=== PATIENT | female | born 1940 | race Caucasian/White ===

== ENCOUNTER 2016-04-21 13:30 | Inpatient (IN) ==
[2016-04-21] MEDS ORDERED: Tdap (ADACEL) Vaccine 0.5 ML IM ONE (13:32)
--- NOTE | 2016-04-21 13:34 | Emergency Department Note ---
Disposition Clinical Impression: UTI (urinary tract infection), Fall, Altered mental status, Periorbital contusion of left eye Disposition: Admitted As Inpatient Condition: Good General Adult HPI - General Chief complaint: ED Head Injury Stated complaint: Fall Time Seen by Provider: 04/21/16 13:31 - Related Data Home Medications Medication Instructions Recorded Confirmed No Known Home Drugs 04/21/16 04/21/16 Allergies Allergy/AdvReac Type Severity Reaction Status Date / Time No Known Allergies Allergy Verified 04/21/16 15:11 Past Medical History - Past Medical History Medical history: Reports: hypertension Surgical history: Reports: , carotid endarterectomy, cholecystectomy, hysterectomy Psychiatric history: Reports: no psych history - Social History Smoking Status: Never smoker Alcohol use: Reports: none Drug use: Reports: none Course Vital Signs Temperature 98.1 F 04/21/16 13:33 Pulse Rate 77 04/21/16 13:33 Respiratory Rate 16 04/21/16 13:33 Blood Pressure 184/100 04/21/16 13:33 O2 Sat by Pulse Oximetry 99 04/21/16 13:33 Temperature 97.7 F 04/21/16 16:05 Pulse Rate 60 04/21/16 16:05 Respiratory Rate 15 04/21/16 16:05 Blood Pressure 173/87 04/21/16 16:05 O2 Sat by Pulse Oximetry 99 04/21/16 16:05 Oxygen Delivery Oxygen Delivery Room Air Medical Decision Making - Lab Data Result diagrams: 04/21/16 14:28 04/21/16 14:28 Lab Results 04/21/16 04/21/16 04/21/16 Range/Units 14:28 14:28 14:28 WBC 4.5 (4.3-11.1) K/mcL RBC 4.57 (3.82-4.97) M/mcL Hgb 13.2 (11.5-15.4) g/dL Hct 42.0 (35.3-44.9) % MCV 91.9 (83.0-100.0) fL MCH 28.9 (28.0-33.3) pg MCHC 31.4 L (31.6-35.5) g/dL RDW 14.2 (11.5-14.5) % Plt Count 156 (140-400) K/mcL MPV 10.9 (9.4-12.4) fL Immature Gran % 0.2 (0-4) % Seg Neutrophils % 59.7 % Lymphocytes % 27.7 % Monocytes % 9.5 % Eosinophils % 2.2 % Basophils % 0.7 % Neutrophils # 2.7 (1.6-8.9) K/mcL Lymphocytes # 1.3 (0.6-4.6) K/mcL Monocytes # 0.4 (0.0-1.3) K/mcL Eosinophils # 0.1 (0.0-0.6) K/mcL Basophils # 0.0 (0.0-0.2) K/mcL Sodium 138 (136-145) mEq/L Potassium 3.9 (3.5-4.5) mEq/L Chloride 106 (98-109) mEq/L Carbon Dioxide 25 (19-29) mEq/L BUN 13 (7-20) mg/dL Creatinine 0.84 (0.57-1.11) mg/dL Est GFR ( Amer) > 60 (> 60) Est GFR (Non-Af Amer) > 60 (> 60) BUN/Creatinine Ratio 15 (6-26) Glucose 130 H (70-99) mg/dL Calculated Osmolality 288 (280-300) Calcium 8.7 (8.6-10.8) mg/dL Total Bilirubin 1.0 (0.2-1.2) mg/dL AST 36 H (5-34) Units/L ALT 27 (0-55) Units/L Alkaline Phosphatase 119 (38-126) Units/L Troponin I 0.01 (0-0.03) ng/mL Serum Total Protein 7.0 (6.0-8.3) g/dL Albumin 3.1 L (3.5-5.0) g/dL Globulin 3.9 H (2.4-3.5) g/dL Albumin/Globulin Ratio 0.8 L (1.1-2.2) TSH (0.350-4.840) mcIU/mL Urine Color (Yellow) Urine Clarity (Clear) Urine pH (5.0-8.0) pH Units Ur Specific [place] (1.010-1.025) Urine Protein (Neg-Trace) mg/dL Urine Glucose (UA) (Normal) mg/dL Urine Ketones (Negative) mg/dL Urine Blood (Negative) Urine Nitrite (Negative) Urine Bilirubin (Negative) Urine Urobilinogen (Normal) mg/dL Ur Leukocyte Esterase (Negative) Urine Microscopic RBC (0-3) per hpf Urine Microscopic WBC (0-3) per hpf Ur Squamous Epith Cells (None-Few) per lpf Urine Bacteria (None-Few) per hpf Hyaline Casts (None-Few) per lpf Urine Opiates Screen (Ttsuoc=869) ng/mL Ur Barbiturates Screen (Pdlvft=079) ng/mL Ur Phencyclidine Scrn (Cutoff=25) ng/mL Ur Amphetamines Screen (Ntlptu=3252) ng/mL U Benzodiazepines Scrn (Bhizxz=617) ng/mL Urine Cocaine Screen (Cutoff= 300) ng/mL U Marijuana (THC) Screen (Cutoff = 50) ng/mL 04/21/16 04/21/16 04/21/16 Range/Units 14:28 14:40 14:40 WBC (4.3-11.1) K/mcL RBC (3.82-4.97) M/mcL Hgb (11.5-15.4) g/dL Hct (35.3-44.9) % MCV (83.0-100.0) fL MCH (28.0-33.3) pg MCHC (31.6-35.5) g/dL RDW (11.5-14.5) % Plt Count (140-400) K/mcL MPV (9.4-12.4) fL Immature Gran % (0-4) % Seg Neutrophils % % Lymphocytes % % Monocytes % % Eosinophils % % Basophils % % Neutrophils # (1.6-8.9) K/mcL Lymphocytes # (0.6-4.6) K/mcL Monocytes # (0.0-1.3) K/mcL Eosinophils # (0.0-0.6) K/mcL Basophils # (0.0-0.2) K/mcL Sodium (136-145) mEq/L Potassium (3.5-4.5) mEq/L Chloride (98-109) mEq/L Carbon Dioxide (19-29) mEq/L BUN (7-20) mg/dL Creatinine (0.57-1.11) mg/dL Est GFR ( Amer) (> 60) Est GFR (Non-Af Amer) (> 60) BUN/Creatinine Ratio (6-26) Glucose (70-99) mg/dL Calculated Osmolality (280-300) Calcium (8.6-10.8) mg/dL Total Bilirubin (0.2-1.2) mg/dL AST (5-34) Units/L ALT (0-55) Units/L Alkaline Phosphatase (38-126) Units/L Troponin I (0-0.03) ng/mL Serum Total Protein (6.0-8.3) g/dL Albumin (3.5-5.0) g/dL Globulin (2.4-3.5) g/dL Albumin/Globulin Ratio (1.1-2.2) TSH 0.785 (0.350-4.840) mcIU/mL Urine Color Yellow (Yellow) Urine Clarity Cloudy A (Clear) Urine pH 5.5 (5.0-8.0) pH Units Ur Specific [place] 1.021 (1.010-1.025) Urine Protein Negative (Neg-Trace) mg/dL Urine Glucose (UA) Normal (Normal) mg/dL Urine Ketones Negative (Negative) mg/dL Urine Blood Negative (Negative) Urine Nitrite Positive A (Negative) Urine Bilirubin Negative (Negative) Urine Urobilinogen Normal (Normal) mg/dL Ur Leukocyte Esterase Moderate H (Negative) Urine Microscopic RBC 5-15 H (0-3) per hpf Urine Microscopic WBC 5-15 H (0-3) per hpf Ur Squamous Epith Cells Many H (None-Few) per lpf Urine Bacteria Many H (None-Few) per hpf Hyaline Casts None Seen (None-Few) per lpf Urine Opiates Screen Negative (Curuus=374) ng/mL Ur Barbiturates Screen Negative (Nwqiqv=028) ng/mL Ur Phencyclidine Scrn Negative (Cutoff=25) ng/mL Ur Amphetamines Screen Negative (Xgthxf=2141) ng/mL U Benzodiazepines Scrn Negative (Mllccn=494) ng/mL Urine Cocaine Screen Negative (Cutoff= 300) ng/mL U Marijuana (THC) Screen Negative (Cutoff = 50) ng/mL Attestation Statement - Attestation Attestation: I examined this patient and my medical decision-making was reviewed with the PROFESSOR OF KINESIOLOGY/PA/Advanced Practice Nurse/Resident Physician. I agree with the documented findings, disposition and treatment plan as described except to the extent set forth below. Zxls-zf-hcod time provided Patient presents via EMS. It is reported that she has experienced intermittent confusion over the past several days. She recently fell striking the left side of her face but the patient is amnestic to the events. She presents alert and lucid but has evidence of left-sided facial injury including abrasion and contusion. She takes no blood thinners
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
[2016-04-21 14:35] LABS: Basophils % 0.7 %; Eosinophils # 0.1 K/mcL (0.0-0.6); Eosinophils % 2.2 %; Hemoglobin 13.2 g/dL (11.5-15.4); Immature Granulocytes % 0.2 % (0-4); Lymphocytes # 1.3 K/mcL (0.6-4.6); Lymphocytes % 27.7 %; Mean Corpuscular HGB Conc 31.4 g/dL (31.6-35.5); Mean Corpuscular Hemoglobin 28.9 pg (28.0-33.3); Mean Corpuscular Volume 91.9 fL (83.0-100.0); Mean Platelet Volume 10.9 fL (9.4-12.4); Monocytes # 0.4 K/mcL (0.0-1.3); Monocytes % 9.5 %; Neutrophils # 2.7 K/mcL (1.6-8.9); Platelet Count 156 K/mcL (140-400); Red Blood Count 4.57 M/mcL (3.82-4.97); Red Cell Distribution Width 14.2 % (11.5-14.5); Segmented Neutrophils % 59.7 %
[2016-04-21 14:54] LABS: Bilirubin,Urine Negative (Negative); Blood,Urine Negative (Negative); Clarity,Urine Cloudy (Clear); Color,Urine Yellow (Yellow); Glucose,Urine (UA) Normal (Normal); Ketones,Urine Negative (Negative); Leukocyte Esterase,Urine Moderate (Negative); Nitrite,Urine Positive (Negative); PH,Urine 5.5 pH Units (5.0-8.0); Protein,Urine Negative (Neg-Trace); Specific Gravity,Urine 1.021 (1.010-1.025); Urobilinogen,Urine Normal (Normal)
[2016-04-21 14:54] LABS: Alanine Aminotransferase 27 Units/L (0-55); Albumin 3.1 g/dL (3.5-5.0); Albumin/Globulin Ratio 0.8 (1.1-2.2); Alkaline Phosphatase 119 Units/L (38-126); Aspartate Amino Transferase 36 Units/L (5-34); BUN/Creatinine Ratio 15 (6-26); Blood Urea Nitrogen 13 mg/dL (7-20); Calcium 8.7 mg/dL (8.6-10.8); Carbon Dioxide 25 mEq/L (19-29); Chloride 106 mEq/L (98-109); Globulin 3.9 g/dL (2.4-3.5); Glucose 130 mg/dL (70-99); Osmolality,Calculated 288 (280-300); Potassium 3.9 mEq/L (3.5-4.5); Sodium 138 mEq/L (136-145); eGFR For African Americans > 60 (> 60); eGFR For Non-African Americans > 60 (> 60)
[2016-04-21 14:56] LABS: Bacteria,Urine Many per hpf (None-Few); Hyaline Casts,Urine None Seen per lpf (None-Few); Squamous Epithelial Cell,Urine Many per lpf (None-Few)
[2016-04-21 14:59] LABS: Amphetamine Screen,Urine Negative ng/mL (Cutoff=1000); Barbiturate Screen,Urine Negative ng/mL (Cutoff=200); Benzodiazepines Screen,Urine Negative ng/mL (Cutoff=200); Cannabinoid Screen,Urine Negative ng/mL (Cutoff = 50); Cocaine Screen,Urine Negative ng/mL (Cutoff= 300); Opiate Screen,Urine Negative ng/mL (Cutoff=300); Phencyclidine Screen,Urine Negative ng/mL (Cutoff=25)
[2016-04-21] MEDS ORDERED: Acetaminophen 325 MG TABLET PO PRN (16:41)
[2016-04-21] MEDS ORDERED: Naloxone 0.4 MG/ML INJ IVP PRN (16:41)
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
[2016-04-21] MEDS: 0.9 % Sodium Chloride 1,000 ML IVC SCH (18:12)
[2016-04-21] MEDS: *HR* Heparin 5,000 UNIT/ML VIAL SQ SCH (18:12)
[2016-04-22 05:45] LABS: Basophils % 0.5 %; Eosinophils # 0.2 K/mcL (0.0-0.6); Eosinophils % 5.1 %; Hematocrit 37.4 % (35.3-44.9); Hemoglobin 12.1 g/dL (11.5-15.4); Immature Granulocytes % 0.3 % (0-4); Lymphocytes # 0.9 K/mcL (0.6-4.6); Lymphocytes % 23.5 %; Mean Corpuscular HGB Conc 32.4 g/dL (31.6-35.5); Mean Corpuscular Hemoglobin 29.4 pg (28.0-33.3); Mean Corpuscular Volume 90.8 fL (83.0-100.0); Mean Platelet Volume 12.4 fL (9.4-12.4); Monocytes # 0.4 K/mcL (0.0-1.3); Monocytes % 10.2 %; Neutrophils # 2.4 K/mcL (1.6-8.9); Platelet Count 131 K/mcL (140-400); Red Blood Count 4.12 M/mcL (3.82-4.97); Red Cell Distribution Width 14.2 % (11.5-14.5); Segmented Neutrophils % 60.4 %
[2016-04-22 05:59] LABS: Alanine Aminotransferase 23 Units/L (0-55); Albumin 2.8 g/dL (3.5-5.0); Albumin/Globulin Ratio 0.8 (1.1-2.2); Alkaline Phosphatase 106 Units/L (38-126); Aspartate Amino Transferase 32 Units/L (5-34); BUN/Creatinine Ratio 17 (6-26); Bilirubin,Total 0.9 mg/dL (0.2-1.2); Blood Urea Nitrogen 13 mg/dL (7-20); Calcium 8.5 mg/dL (8.6-10.8); Carbon Dioxide 22 mEq/L (19-29); Chloride 108 mEq/L (98-109); Chol/HDL Ratio 4.1 (0-4.9); Cholesterol 142 mg/dL (< 200); Globulin 3.4 g/dL (2.4-3.5); Glucose 148 mg/dL (70-99); HDL Cholesterol 35 mg/dL (40-59); LDL Cholesterol,Calculated 83 mg/dL (0-99); Magnesium 1.8 mg/dL (1.6-2.6); Osmolality,Calculated 289 (280-300); Phosphorous 3.2 mg/dL (2.3-4.7); Sodium 138 mEq/L (136-145); Total Protein 6.2 g/dL (6.0-8.3); Triglycerides 119 mg/dL (< 150); eGFR For African Americans > 60 (> 60); eGFR For Non-African Americans > 60 (> 60)
[2016-04-22] MEDS: *HR* Heparin 5,000 UNIT/ML VIAL SQ SCH ×2 (06:26→15:32)
[2016-04-22] MEDS: 0.9 % Sodium Chloride 1,000 ML IVC SCH (08:56)
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
[2016-04-22] MEDS ORDERED: *HR* LORazepam 2 MG/ML VIAL IVP ONE (15:27)
[2016-04-23 05:30] LABS: Basophils % 0.3 %; Eosinophils # 0.2 K/mcL (0.0-0.6); Hematocrit 37.7 % (35.3-44.9); Hemoglobin 12.2 g/dL (11.5-15.4); Immature Granulocytes % 0.3 % (0-4); Lymphocytes # 0.8 K/mcL (0.6-4.6); Lymphocytes % 20.6 %; Mean Corpuscular HGB Conc 32.4 g/dL (31.6-35.5); Mean Corpuscular Hemoglobin 29.5 pg (28.0-33.3); Mean Corpuscular Volume 91.3 fL (83.0-100.0); Mean Platelet Volume 12.1 fL (9.4-12.4); Monocytes # 0.4 K/mcL (0.0-1.3); Monocytes % 11.2 %; Neutrophils # 2.4 K/mcL (1.6-8.9); Nucleated Red Blood Cells 0.5 /100 WBC (0); Platelet Count 126 K/mcL (140-400); Red Blood Count 4.13 M/mcL (3.82-4.97); Red Cell Distribution Width 14.1 % (11.5-14.5); Segmented Neutrophils % 61.6 %
[2016-04-23 05:46] LABS: BUN/Creatinine Ratio 18 (6-26); Blood Urea Nitrogen 14 mg/dL (7-20); Calcium 8.7 mg/dL (8.6-10.8); Carbon Dioxide 26 mEq/L (19-29); Chloride 108 mEq/L (98-109); Glucose 99 mg/dL (70-99); Osmolality,Calculated 289 (280-300); Sodium 139 mEq/L (136-145); eGFR For African Americans > 60 (> 60); eGFR For Non-African Americans > 60 (> 60)
[2016-04-23] MEDS: *HR* Heparin 5,000 UNIT/ML VIAL SQ SCH ×2 (05:58→17:05)
--- NOTE | 2016-04-23 07:15 | Electrocardiograph Report ---
[address] [place], [place] [address] Test Date: 2016-04-21 Pat Name: Betty Leigh Department: 105 Room: 3B45 Gender: F Director Of Security: : 1940 Requested By: Desmond Riley Order Number: [id number] Reading MD: Rudolph Smith MD Measurements Intervals Prentice Rate: 73 P: 29 MS: 139 QRS: -23 QRSD: 94 T: 30 QT: 369 QTc: 396 Interpretive Statements SINUS RHYTHM WITH OCCASIONAL ECTOPIC PREMATURE COMPLEXES BORDERLINE LEFT AXIS DEVIATION MODERATE VOLTAGE CRITERIA FOR LVH Electronically Signed On 04-23-2016 7:13:45 EST by Rudolph Smith MD
[2016-04-23 09:45] LABS: Clarity,Urine Clear (Clear); Color,Urine Orange (Yellow)
[2016-04-23 09:47] LABS: Squamous Epithelial Cell,Urine Few per lpf (None-Few)
[2016-04-23 09:49] LABS: RBC,Urine 0-3 per hpf (0-3); WBC,Urine 0-3 per hpf (0-3)
[2016-04-23 09:50] LABS: Amorphous Sediment,Urine Few (Few)
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
[2016-04-23] MEDS: 0.9 % Sodium Chloride 1,000 ML IVC SCH (17:06)
[2016-04-23] MEDS: *HR* LORazepam 2 MG/ML VIAL IVP ONE ×2 (17:24→18:31)
[2016-04-23] MEDS: *HR* LORazepam 0.5 MG TABLET PO ONE ×2 (17:43→18:16)
[2016-04-23] MEDS ORDERED: Haloperidol Lactate 5 MG/ML VIAL IVP ONE (20:15)
[2016-04-24 06:38] LABS: Hematocrit 37.5 % (35.3-44.9); Hemoglobin 11.9 g/dL (11.5-15.4); Mean Corpuscular HGB Conc 31.7 g/dL (31.6-35.5); Mean Corpuscular Hemoglobin 28.9 pg (28.0-33.3); Platelet Count 127 K/mcL (140-400); Red Blood Count 4.12 M/mcL (3.82-4.97)
[2016-04-24] MEDS: *HR* Heparin 5,000 UNIT/ML VIAL SQ SCH ×2 (06:38→17:02)
[2016-04-24 06:55] LABS: BUN/Creatinine Ratio 23 (6-26); Blood Urea Nitrogen 16 mg/dL (7-20); Calcium 8.4 mg/dL (8.6-10.8); Carbon Dioxide 22 mEq/L (19-29); Chloride 110 mEq/L (98-109); Glucose 88 mg/dL (70-99); Osmolality,Calculated 291 (280-300); Sodium 140 mEq/L (136-145); eGFR For African Americans > 60 (> 60); eGFR For Non-African Americans > 60 (> 60)
[2016-04-24 07:12] LABS: Potassium 4.3 mEq/L (3.5-4.5)
--- NOTE | 2016-04-24 10:25 | Internal Med Progress Note ---
<Leticia Keller - Last Filed: 04/24/16 15:10> Date of Encounter: 04/24/16 Time of Encounter: 10:16 - Assessment and plan (1) Altered mental status Current Visit: Yes Status: Acute Assessment and plan: Patient being worked up for altered mental status. Patient is intermittently confused, pulling out her IV lines, and does not remember conversations that occurred earlier in the day. Furthermore, she does not have a linear thought process and displays tangential thinking. CT head showed no acute abnormality. Etiology unclear at this time, but likely exacerbated by patient's UTI (day4 of Ceftriaxone). Patient lives alone and baseline is uknown. According to [facility] notes, she was seen by her PCP back in December and had diagnosis of Dementia listed. Patient lives alone at home. There is significant concern regarding her safety. She states she has family members that live close by but this has not been confirmed. Plan: Consult to psychiatry Risperidol daily Ativan Q8 PRN for agitation RPR pending with tomorrow's labs. Will attempt to get in contact with family regarding her baseline mental status. Consult to social media coordinator to help with discharge planning. Qualifiers: Altered mental status type: unspecified Qualified Code(s): R41.82 - Altered mental status, unspecified (2) Dementia Current Visit: No Status: Acute Assessment and plan: Plan as above. Qualifiers: Dementia type: Alzheimer's disease Alzheimer's disease onset: other onset Dementia behavioral disturbance: with behavioral disturbance Qualified Code( s): G30.8 - Other Alzheimer's disease; F02.81 - Dementia in other diseases classified elsewhere with behavioral disturbance (3) UTI (urinary tract infection) Current Visit: Yes Status: Acute Assessment and plan: Continue with Ceftriaxone. Qualifiers: Urinary tract infection type: site unspecified Hematuria presence: without hematuria Qualified Code(s): N39.0 - Urinary tract infection, site not specified (4) Periorbital contusion of left eye Current Visit: Yes Status: Acute Assessment and plan: Improved from yesterday. Pt denies change in vision or headache. Will continue to monitor. Qualifiers: Encounter type: initial encounter Qualified Code(s): S05.12XA - Contusion of eyeball and orbital tissues, left eye, initial encounter (5) Essential hypertension Current Visit: No Status: Chronic Assessment and plan: continue to monitor. (6) DVT prophylaxis Current Visit: Yes Status: Acute Assessment and plan: Heparin SQ - Subjective Interval history: 75 year-old white female examined at bedside. Patient reports she is doing fine except she still has mild suprapubic pain. She reports her dysuria has resolved. She denies chills, cp, sob, cough, nausea, vomiting, diarrhea, or any other pain at this time. Of note patient may not be completely aware of her situation. She does not always answer questions appropriately. She is aware that she is in the hospital being treated for a UTI. She frequently redirects the conversation to explaining that her gas company has turned off the gas in her house so she has no heat at home. When asked about dysuria patient responded "No, but when I boil the urine in the bedside commode I have no heat in my house". Per nursing staff patient appears to be fluctuating between coherent answers and agitation/confusion. - Constitutional Vitals: Temp Pulse Resp BP Pulse Ox 98.0 F 50 16 170/81 96 04/24/16 07:29 04/24/16 07:29 04/24/16 07:29 04/24/16 07:29 04/24/16 07:29 General appearance: Present: cooperative, A&O X 1, pleasant, no acute distress. Absent: answers questions appropriately Exam: Patient is alert, calm, and cooperative on exam this morning. In NAD. Oriented to self. She knows she is in the hospital but cannot name the hospital. She reports we are in 2002. She repeatedly reports the month as Saturday. - Head Head exam: Present: atraumatic Additional comments: Patient has abrasion/contusion over left eye. Not tender to palpation. Some echymosis below the left eye. - Eye Eye exam: Present: PERRL, conjuntiva pink, sclera anicteric - ENT ENT exam: Present: mucous membranes moist - Neck Neck exam general surgery: Present: supple, trachea midline. Absent: lymphadenopathy - Respiratory Respiratory exam: Present: CTAB. Absent: accessory muscle use, rales, respiratory distress, rhonchi, wheezes - Cardiovascular Cardiovascular exam: Present: bradycardia, +S1, +S2. Absent: diastolic murmur, gallop, irregular rhythm, rubs, systolic murmur - GI/Abdominal GI/Abdominal exam: Present: normal bowel sounds, soft, tenderness (mild tenderness suprapubic region), no peritoneal signs. Absent: distended, guarding - Extremities Exam Extremities exam: Present: warm, radial pulses palpable and symetrical. Absent : calf tenderness, cyanotic, pedal edema Additional comments: 2/4 bilateral pedal pulses - Back Exam Back exam: Absent: CVA tenderness (L), CVA tenderness (R) - Neurological Exam Neurological exam: Present: alert, altered (Oriented x1 see above/HPI), no focal deficits, strengths equal and symetr throughout. Absent: facial droop, speech deficit - Psychiatric Psychiatric exam: Present: normal affect, normal mood - Skin Skin exam: Present: dry, intact Internal Medicine: Result - Labs CBC & Chem 7: 04/24/16 05:28 04/24/16 05:28 Labs: Short CBC 04/24/16 Range/Units 05:28 WBC 3.7 L (4.3-11.1) K/mcL Hgb 11.9 (11.5-15.4) g/dL Hct 37.5 (35.3-44.9) % Plt Count 127 L (140-400) K/mcL BMP 04/24/16 05:28 Sodium 140 Potassium 4.3 Chloride 110 H Carbon Dioxide 22 BUN 16 Creatinine 0.70 Glucose 88 Calcium 8.4 L Consult Discharge Plan - Plan Referrals: Barrett Webb MD [Primary Care Provider] - <Jorge Alberto Jeter - Last Filed: 04/24/16 18:06> Date of Encounter: 04/24/16 - Constitutional Vitals: Temp Pulse Resp BP Pulse Ox 97.9 F 56 16 188/92 95 04/24/16 10:51 04/24/16 10:51 04/24/16 10:51 04/24/16 10:51 04/24/16 10:51 Internal Medicine: Result - Labs CBC & Chem 7: 04/24/16 05:28 04/24/16 05:28 Labs: Short CBC 04/24/16 Range/Units 05:28 WBC 3.7 L (4.3-11.1) K/mcL Hgb 11.9 (11.5-15.4) g/dL Hct 37.5 (35.3-44.9) % Plt Count 127 L (140-400) K/mcL BMP 04/24/16 05:28 Sodium 140 Potassium 4.3 Chloride 110 H Carbon Dioxide 22 BUN 16 Creatinine 0.70 Glucose 88 Calcium 8.4 L - Attending Attestation I examined this patient and my medical decision-making was reviewed with the BLIND HANGER/PA/Advanced Practice Nurse/Resident Physician. I agree with the documented findings, disposition and treatment plan as described except to the extent set forth below. Patient seen at bedside with medical students, residents and RN 75-year-old with hypertension controlled without medications Admitted for altered mental status and UTI Patient was very restless for most of the day, pulling out IV lines and threatening to be discharged home. Patient seen and mentally she seems to be confused, she is oriented to time place and person, however past changes every time she has potential spine and she has a mentation. It is possible that the patient has delirium hyperactivity secondary to hospitalization however she did have altered mental status at the time of presentation, she was at the bank multiple stories. She has been managed with 4 days of antibiotics IV. Blood and Urine cultures negative, Continue same. Psychiatric evaluation for decisional capacity, and for any recommendations. Start risperidone and continue orientation and re-orientation. Continued attempts to reach patient's family.
[2016-04-24] MEDS ORDERED: *HR* LORazepam 2 MG/ML VIAL IVP STA (14:05)
[2016-04-24] MEDS: risperiDONE 0.25 MG TABLET PO SCH (14:56)
[2016-04-25 07:06] LABS: BUN/Creatinine Ratio 30 (6-26); Blood Urea Nitrogen 21 mg/dL (7-20); Calcium 8.4 mg/dL (8.6-10.8); Carbon Dioxide 24 mEq/L (19-29); Chloride 109 mEq/L (98-109); Glucose 104 mg/dL (70-99); Osmolality,Calculated 295 (280-300); Sodium 141 mEq/L (136-145); eGFR For African Americans > 60 (> 60); eGFR For Non-African Americans > 60 (> 60)
[2016-04-25 07:20] LABS: Basophils % 0.5 %; Eosinophils # 0.3 K/mcL (0.0-0.6); Eosinophils % 7.1 %; Hemoglobin 12.6 g/dL (11.5-15.4); Immature Granulocytes % 0.2 % (0-4); Lymphocytes % 23.8 %; Mean Corpuscular HGB Conc 32.3 g/dL (31.6-35.5); Mean Corpuscular Hemoglobin 29.4 pg (28.0-33.3); Mean Corpuscular Volume 90.9 fL (83.0-100.0); Mean Platelet Volume 11.8 fL (9.4-12.4); Monocytes # 0.4 K/mcL (0.0-1.3); Neutrophils # 2.4 K/mcL (1.6-8.9); Platelet Count 128 K/mcL (140-400); Red Blood Count 4.29 M/mcL (3.82-4.97); Red Cell Distribution Width 14.1 % (11.5-14.5); Segmented Neutrophils % 59.4 %
[2016-04-25] MEDS: *HR* Heparin 5,000 UNIT/ML VIAL SQ SCH ×2 (07:39→18:18)
--- NOTE | 2016-04-25 09:05 | Internal Med Progress Note ---
<Leticia Keller - Last Filed: 04/25/16 16:39> Date of Encounter: 04/25/16 Time of Encounter: 09:02 - Assessment and plan (1) Altered mental status Current Visit: Yes Status: Acute Assessment and plan: Patient being worked up for altered mental status. Patient is intermittently confused, pulling out her IV lines, and does not remember conversations that occurred earlier in the day. Furthermore, she does not have a linear thought process and displays tangential thinking. CT head showed no acute abnormality. Etiology unclear at this time, but likely exacerbated by patient's UTI Patient lives alone and baseline is uknown. According to [facility] notes, she was seen by her PCP back in December and had diagnosis of Dementia listed. Patient lives alone at home. There is significant concern regarding her safety. She states she has family members that live close by but this has not been confirmed. UDS negative, TSH normal. 04/25: patient is more confused today, but less agitated. she cannot remember the names of some of her family members. Plan: Consult to psychiatry- Spoke with Dr. Barnett he stated he would see the patient today. Risperidol daily Ceftriaxone Day 5 Ativan Q8 PRN for agitation RPR pending Will attempt to get in contact with family regarding her baseline mental status. Consult to social group worker to help with discharge planning. Qualifiers: Altered mental status type: unspecified Qualified Code(s): R41.82 - Altered mental status, unspecified (2) Dementia Current Visit: No Status: Acute Assessment and plan: Plan as above. Qualifiers: Dementia type: Alzheimer's disease Alzheimer's disease onset: other onset Dementia behavioral disturbance: with behavioral disturbance Qualified Code( s): G30.8 - Other Alzheimer's disease; F02.81 - Dementia in other diseases classified elsewhere with behavioral disturbance (3) UTI (urinary tract infection) Current Visit: Yes Status: Acute Assessment and plan: Continue with Ceftriaxone. Qualifiers: Urinary tract infection type: site unspecified Hematuria presence: without hematuria Qualified Code(s): N39.0 - Urinary tract infection, site not specified (4) Periorbital contusion of left eye Current Visit: Yes Status: Acute Assessment and plan: Improved from yesterday. Pt denies change in vision or headache. Will continue to monitor. Qualifiers: Encounter type: initial encounter Qualified Code(s): S05.12XA - Contusion of eyeball and orbital tissues, left eye, initial encounter (5) Essential hypertension Current Visit: No Status: Chronic Assessment and plan: BP has been mildly elevated. Continue Amlodipine Started daily. continue to monitor. (6) DVT prophylaxis Current Visit: Yes Status: Acute Assessment and plan: Heparin SQ - Subjective Interval history: 75 year-old female evaluated at bedside. Per nusing staff, she was confused overnight, and did not require any ativan. Today, she is alert and oriented x2 ( patient was looking at the board and saying what day it was). Patient is more confused today than she was yesterday, asking who her doctor is, and having trouble remembering the names of some of her family members. - Constitutional Vitals: Temp Pulse Resp BP Pulse Ox 98.2 F 70 16 174/92 93 L 04/25/16 08:46 04/25/16 08:46 04/25/16 08:46 04/25/16 08:46 04/25/16 08:46 General appearance: Present: cooperative, A&O X 2, pleasant, no acute distress. Absent: answers questions appropriately Exam: patient appears more confused today than she was yesterday. - Head Head exam: Present: atraumatic, normocephalic - ENT ENT exam: Present: mucous membranes moist - Neck Neck exam general surgery: Present: supple, trachea midline - Respiratory Respiratory exam: Present: CTAB. Absent: rhonchi, wheezes - Cardiovascular Cardiovascular exam: Present: RRR, +S1, +S2 - GI/Abdominal GI/Abdominal exam: Present: normal bowel sounds, soft. Absent: tenderness - Extremities Exam Extremities exam: Absent: cyanotic, pedal edema - Neurological Exam Neurological exam: Present: alert, altered Additional comments: patient is confused. - Skin Skin exam: Absent: cyanosis, petechiae Internal Medicine: Result - Labs CBC & Chem 7: 04/25/16 06:34 04/25/16 06:34 Labs: Short CBC 04/25/16 Range/Units 06:34 WBC 4.1 L (4.3-11.1) K/mcL Hgb 12.6 (11.5-15.4) g/dL Hct 39.0 (35.3-44.9) % Plt Count 128 L (140-400) K/mcL Neutrophils # 2.4 (1.6-8.9) K/mcL [facility] 04/25/16 06:34 Sodium 141 Potassium 4.0 Chloride 109 Carbon Dioxide 24 BUN 21 H Creatinine 0.69 Glucose 104 H Calcium 8.4 L Consult Discharge Plan - Plan Referrals: Barrett Webb MD [Primary Care Provider] - <Jorge Alberto Jeter T - Last Filed: 04/25/16 16:56> - Constitutional Vitals: Temp Pulse Resp BP Pulse Ox 98.2 F 70 16 174/92 93 L 04/25/16 08:46 04/25/16 08:46 04/25/16 08:46 04/25/16 08:46 04/25/16 08:46 Internal Medicine: Result - Labs CBC & Chem 7: 04/25/16 06:34 04/25/16 06:34 Labs: Short CBC 04/25/16 Range/Units 06:34 WBC 4.1 L (4.3-11.1) K/mcL Hgb 12.6 (11.5-15.4) g/dL Hct 39.0 (35.3-44.9) % Plt Count 128 L (140-400) K/mcL Neutrophils # 2.4 (1.6-8.9) K/mcL [facility] 04/25/16 06:34 Sodium 141 Potassium 4.0 Chloride 109 Carbon Dioxide 24 BUN 21 H Creatinine 0.69 Glucose 104 H Calcium 8.4 L - Attending Attestation I examined this patient and my medical decision-making was reviewed with the BILLING TYPIST/PA/Advanced Practice Nurse/Resident Physician. I agree with the documented findings, disposition and treatment plan as described except to the extent set forth below. 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
[2016-04-25] MEDS: amLODIPine 5 MG TABLET PO SCH (09:08)
[2016-04-25] MEDS: risperiDONE 0.25 MG TABLET PO SCH (09:08)
[2016-04-25] MEDS: *HR* LORazepam 2 MG/ML VIAL IVP PRN (12:46)
[2016-04-25] MEDS ORDERED: *HR* LORazepam 2 MG/ML VIAL IVP ONE (13:52)
--- NOTE | 2016-04-25 16:15 | Consult Note ---
Date of Encounter: 04/25/16 Time of Encounter: 15:00 Assessment & Recommendation (1) Delirium due to multiple etiologies Current visit: Yes Status: Acute Assessment & Recommendation: This could be delirium on top of dementia, however without records or information about her baseline level of functioning, it would be difficult to assess her capacity or competency. At this time I recommend continuation of medical treatment and when necessary Haldol orders were given to the nursing staff to help control her behaviors. I also recommend obtaining psychosocial assessment from the family. reconsult when patient condition is stabilized. Thank you (2) Altered mental status Current visit: Yes Status: Acute Qualifiers: Altered mental status type: unspecified Qualified Code(s): R41.82 - Altered mental status, unspecified History of Present Illness Patient: new to practice Requesting Physician: Jorge Alberto Jeter MD Reason for consult: agitation and confusion History of present illness: Ms. Leigh is a 75 year old female admitted to the hospital for treatment of UTI and she had a fall prior to admission. Psychiatric consultation was requested to evaluate her capacity to make decisions regarding placement in a nursing facility, however patient is in a state of delirium and cannot be evaluated in her condition. In her treatment is ongoing to address her medical issues. She is reported to be agitated and confused and disoriented and her speech is incoherent attempt to contact family has not been successful to determine her baseline level of functioning. CC: Jorge Alberto Jeter MD Past Med Surg Social Fam HX - Past Medical History Medical history: hypertension - Past Surgical History Surgical History: , carotid endarterectomy, cholecystectomy, hysterectomy - Social History Smoking Status: Never smoker Alcohol use: none Drug use: none - Family History Father Living Status: Hx Family Cardiac Disorders: No Hx Family Respiratory Disorders: No Hx Family Cancer: No Hx Family GI Disorders: No Hx Family Genitourinary Disorders: No Hx Family Endocrine Disorder: No Hx Family Musculoskeletal Disorders: No Hx Family Neuromuscular Disorders: No Hx Family Neurologic Disorders: No Hx Family HEENT Disorders: No Hx Family Autoimmune Disorders: No Hx Family Reproductive Disorders: No Hx Family Psychosocial Disorders: No Hx Family Medical Disorders: No Mother Living Status: Hx Family Cardiac Disorders: No Hx Family Respiratory Disorders: No Hx Family Cancer: No Hx Family GI Disorders: No Hx Family Genitourinary Disorders: No Hx Family Endocrine Disorder: No Hx Family Musculoskeletal Disorders: No Hx Family Neuromuscular Disorders: No Hx Family Neurologic Disorders: No Hx Family HEENT Disorders: No Hx Family Autoimmune Disorders: No Hx Family Reproductive Disorders: No Hx Family Psychosocial Disorders: No Hx Family Medical Disorders: No Medications & Allergies No Known Home Drugs 04/21/16 [History] Allergies No Known Allergies Allergy (Verified 04/21/16 15:11) Mental Status Exam Additional observations: Patient was seen in the hallway she was helped by nursing staff she was yelling and screaming and uncooperative was a staff will try to get the patient in her room so I can see her. Her speech was mumbled and incoherent and her answer the questions were inappropriate she was not oriented to the hospital on time. She presents as delirious was possible background of dementia. Results - Vital Signs Vital signs: Temp Pulse Resp BP Pulse Ox 98.2 F 70 16 174/92 93 L 04/25/16 08:46 04/25/16 08:46 04/25/16 08:46 04/25/16 08:46 04/25/16 08:46 - Labs Labs: Laboratory Last Values WBC 4.1 K/mcL (4.3-11.1) L 04/25/16 06:34 RBC 4.29 M/mcL (3.82-4.97) 04/25/16 06:34 Hgb 12.6 g/dL (11.5-15.4) 04/25/16 06:34 Hct 39.0 % (35.3-44.9) 04/25/16 06:34 MCV 90.9 fL (83.0-100.0) 04/25/16 06:34 MCH 29.4 pg (28.0-33.3) 04/25/16 06:34 MCHC 32.3 g/dL (31.6-35.5) 04/25/16 06:34 RDW 14.1 % (11.5-14.5) 04/25/16 06:34 Plt Count 128 K/mcL (140-400) L 04/25/16 06:34 MPV 11.8 fL (9.4-12.4) 04/25/16 06:34 Immature Gran % 0.2 % (0-4) 04/25/16 06:34 Seg Neutrophils % 59.4 % 04/25/16 06:34 Lymphocytes % 23.8 % 04/25/16 06:34 Monocytes % 9.0 % 04/25/16 06:34 Eosinophils % 7.1 % 04/25/16 06:34 Basophils % 0.5 % 04/25/16 06:34 Neutrophils # 2.4 K/mcL (1.6-8.9) 04/25/16 06:34 Lymphocytes # 1.0 K/mcL (0.6-4.6) 04/25/16 06:34 Monocytes # 0.4 K/mcL (0.0-1.3) 04/25/16 06:34 Eosinophils # 0.3 K/mcL (0.0-0.6) 04/25/16 06:34 Basophils # 0.0 K/mcL (0.0-0.2) 04/25/16 06:34 Nucleated RBCs/100 WBC 0.5 /100 WBC (0) H 04/23/16 04:45 Sodium 141 mEq/L (136-145) 04/25/16 06:34 Potassium 4.0 mEq/L (3.5-4.5) 04/25/16 06:34 Chloride 109 mEq/L (98-109) 04/25/16 06:34 Carbon Dioxide 24 mEq/L (19-29) 04/25/16 06:34 BUN 21 mg/dL (7-20) H 04/25/16 06:34 Creatinine 0.69 mg/dL (0.57-1.11) 04/25/16 06:34 Est GFR ( Amer) > 60 (> 60) 04/25/16 06:34 Est GFR (Non-Af Amer) > 60 (> 60) 04/25/16 06:34 BUN/Creatinine Ratio 30 (6-26) H 04/25/16 06:34 Glucose 104 mg/dL (70-99) H 04/25/16 06:34 Calculated Osmolality 295 (280-300) 04/25/16 06:34 Calcium 8.4 mg/dL (8.6-10.8) L 04/25/16 06:34 Phosphorus 3.2 mg/dL (2.3-4.7) 04/22/16 04:33 Magnesium 1.8 mg/dL (1.6-2.6) 04/22/16 04:33 Total Bilirubin 0.9 mg/dL (0.2-1.2) 04/22/16 04:33 AST 32 Units/L (5-34) 04/22/16 04:33 ALT 23 Units/L (0-55) 04/22/16 04:33 Alkaline Phosphatase 106 Units/L (38-126) 04/22/16 04:33 Troponin I 0.01 ng/mL (0-0.03) 04/22/16 04:33 Serum Total Protein 6.2 g/dL (6.0-8.3) 04/22/16 04:33 Albumin 2.8 g/dL (3.5-5.0) L 04/22/16 04:33 Globulin 3.4 g/dL (2.4-3.5) 04/22/16 04:33 Albumin/Globulin Ratio 0.8 (1.1-2.2) L 04/22/16 04:33 Triglycerides 119 mg/dL (< 150) 04/22/16 04:33 Cholesterol 142 mg/dL (< 200) 04/22/16 04:33 LDL Cholesterol, Calc 83 mg/dL (0-99) 04/22/16 04:33 VLDL Cholesterol, Calc 24 mg/dL (< 31) 04/22/16 04:33 HDL Cholesterol 35 mg/dL (40-59) L 04/22/16 04:33 Cholesterol/HDL Ratio 4.1 (0-4.9) 04/22/16 04:33 TSH 0.785 mcIU/mL (0.350-4.840) 04/21/16 14:28 Ur Specimen Adequacy See below A 04/23/16 06:45 Urine Color [place] (Yellow) A 04/23/16 06:45 Urine Clarity Clear (Clear) 04/23/16 06:45 Urine pH TNP 04/23/16 06:45 Ur Specific [place] TNP 04/23/16 06:45 Urine Protein TNP 04/23/16 06:45 Urine Glucose (UA) TNP 04/23/16 06:45 Urine Ketones TNP 04/23/16 06:45 Urine Blood TNP 04/23/16 06:45 Urine Nitrite TNP 04/23/16 06:45 Urine Bilirubin TNP 04/23/16 06:45 Urine Urobilinogen TNP 04/23/16 06:45 Ur Leukocyte Esterase TNP 04/23/16 06:45 Urine Microscopic RBC 0-3 per hpf (0-3) 04/23/16 06:45 Urine Microscopic WBC 0-3 per hpf (0-3) 04/23/16 06:45 Ur Squamous Epith Cells Few per lpf (None-Few) 04/23/16 06:45 Amorphous Sediment Few (Few) 04/23/16 06:45 Urine Bacteria Many per hpf (None-Few) H 04/21/16 14:40 Hyaline Casts None Seen per lpf (None-Few) 04/21/16 14:40 Urine Opiates Screen Negative ng/mL (Fvxpvx=268) 04/21/16 14:40 Ur Barbiturates Screen Negative ng/mL (Emaopo=206) 04/21/16 14:40 Ur Phencyclidine Scrn Negative ng/mL (Cutoff=25) 04/21/16 14:40 Ur Amphetamines Screen Negative ng/mL (Sinkrx=4292) 04/21/16 14:40 U Benzodiazepines Scrn Negative ng/mL (Xkxvwo=634) 04/21/16 14:40 Urine Cocaine Screen Negative ng/mL (Cutoff= 300) 04/21/16 14:40 U Marijuana (THC) Screen Negative ng/mL (Cutoff = 50) 04/21/16 14:40 T.pallidum Ab Interpret NEGATIVE (NEGATIVE) 04/25/16 06:34 Consult Discharge Plan - Plan Referrals: Barrett Webb MD [Primary Care Provider] -
[2016-04-25] MEDS: Haloperidol Lactate 5 MG/ML VIAL IM PRN (21:25)
[2016-04-26] MEDS: *HR* Heparin 5,000 UNIT/ML VIAL SQ SCH ×3 (06:20→20:00)
--- NOTE | 2016-04-26 06:29 | Internal Med Progress Note ---
<Leticia Keller - Last Filed: 04/26/16 06:27> Date of Encounter: 04/26/16 Time of Encounter: 06:27 - Assessment and plan (1) Altered mental status Current Visit: Yes Status: Acute Assessment and plan: Patient being worked up for altered mental status. Patient is intermittently confused, pulling out her IV lines, and does not remember conversations that occurred earlier in the day. Furthermore, she does not have a linear thought process and displays tangential thinking. CT head showed no acute abnormality. Etiology unclear at this time, but likely exacerbated by patient's UTI Patient lives alone and baseline is uknown. According to [facility] notes, she was seen by her PCP back in December and had diagnosis of Dementia listed. Patient lives alone at home. There is significant concern regarding her safety. She states she has family members that live close by but this has not been confirmed. UDS negative, TSH normal. RPR negative. 04/25: patient is more confused today, but less agitated. she cannot remember the names of some of her family members. 04/26: patient continues to be more confused and drowsy. She does not recall her brother coming to visit her this morning. Plan: Consult to psychiatry- note states that her capacity/competency could not be determined, psychiatrist has added PRN halodol. Risperidol daily Ceftriaxone-last dose to be given today. Ativan Q8 PRN for agitation consult to social work case manager to help in discharge planning. Patient's brother yvette will arrive today to help with discharge planning, will meet with manager social media at that time. Qualifiers: Altered mental status type: unspecified Qualified Code(s): R41.82 - Altered mental status, unspecified (2) Dementia Current Visit: No Status: Acute Assessment and plan: Plan as above. Qualifiers: Dementia type: Alzheimer's disease Alzheimer's disease onset: other onset Dementia behavioral disturbance: with behavioral disturbance Qualified Code( s): G30.8 - Other Alzheimer's disease; F02.81 - Dementia in other diseases classified elsewhere with behavioral disturbance (3) UTI (urinary tract infection) Current Visit: Yes Status: Acute Assessment and plan: Continue with Ceftriaxone, last dose today. Qualifiers: Urinary tract infection type: site unspecified Hematuria presence: without hematuria Qualified Code(s): N39.0 - Urinary tract infection, site not specified (4) Periorbital contusion of left eye Current Visit: Yes Status: Acute Assessment and plan: Improving. continue to monitor. Qualifiers: Encounter type: initial encounter Qualified Code(s): S05.12XA - Contusion of eyeball and orbital tissues, left eye, initial encounter (5) Essential hypertension Current Visit: No Status: Chronic Assessment and plan: BP lower today Continue Amlodipine and Lisinopril. (6) DVT prophylaxis Current Visit: Yes Status: Acute Assessment and plan: Heparin SQ - Subjective Interval history: 75 year-old female evaluated at bedside. Per nursing staff, she did require one dose of holodol overnight but slept most of the night. The patient is more drowsy and confused today, and was falling asleep during examination. She does not remember her brother coming in yesterday to visit her, and keeps asking why she is in the hospital. Patient denies nausea, vomiting, diarrhea, fever chills. She initially was refusing her meds this morning, but later agreed to take them. Her blood pressure appears better controlled today. - Constitutional Vitals: Temp Pulse Resp BP Pulse Ox 97.3 F L 59 17 142/79 92 L 04/26/16 06:12 04/26/16 06:12 04/26/16 06:12 04/26/16 06:12 04/26/16 06:12 General appearance: Present: cooperative, A&O X 1, pleasant, no acute distress. Absent: answers questions appropriately Exam: drowsy, confused. - Head Head exam: Present: atraumatic, normocephalic - Neck Neck exam general surgery: Present: supple, trachea midline - Respiratory Respiratory exam: Present: CTAB - Cardiovascular Cardiovascular exam: Present: RRR, +S1, +S2 - GI/Abdominal GI/Abdominal exam: Present: normal bowel sounds, soft. Absent: distended, guarding Additional comments: scars present from previous surgeries. - Extremities Exam Extremities exam: Absent: cyanotic, tenderness - Psychiatric Additional comments: drowsy Internal Medicine: Result - Labs CBC & Chem 7: 04/25/16 06:34 04/25/16 06:34 Labs: Short CBC 04/25/16 Range/Units 06:34 WBC 4.1 L (4.3-11.1) K/mcL Hgb 12.6 (11.5-15.4) g/dL Hct 39.0 (35.3-44.9) % Plt Count 128 L (140-400) K/mcL Neutrophils # 2.4 (1.6-8.9) K/mcL BMP 04/25/16 06:34 Sodium 141 Potassium 4.0 Chloride 109 Carbon Dioxide 24 BUN 21 H Creatinine 0.69 Glucose 104 H Calcium 8.4 L Consult Discharge Plan - Plan Referrals: Barrett Webb MD [Primary Care Provider] - (web request sent on 04/25/16) <Jorge Alberto Jeter T - Last Filed: 04/26/16 14:23> - Constitutional Vitals: Temp Pulse Resp BP Pulse Ox 97.3 F L 59 17 142/79 92 L 04/26/16 06:12 04/26/16 06:12 04/26/16 06:12 04/26/16 06:12 04/26/16 06:12 Internal Medicine: Result - Labs CBC & Chem 7: 04/25/16 06:34 04/25/16 06:34 - Attending Attestation I examined this patient and my medical decision-making was reviewed with the TELEMARKETER SUPERVISOR/PA/Advanced Practice Nurse/Resident Physician. I agree with the documented findings, disposition and treatment plan as described except to the extent set forth below. 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 She sounded coherent for a few minutes asking about care of her home, then she started talking about someone stealing her money her other physical exam is unremarkable Her left eye elisabeth-orbital bruising has improved Psych input noted and appreciated D/C antibiotics after today Continue current meds For SNF placement
[2016-04-26] MEDS: amLODIPine 5 MG TABLET PO SCH (11:37)
[2016-04-26] MEDS: risperiDONE 0.25 MG TABLET PO SCH (11:37)
[2016-04-26] MEDS: Haloperidol Lactate 5 MG/ML VIAL IM PRN (20:21)
[2016-04-26] MEDS: Lacri-Lube 3.5 GM TUBE BOTH EYES SCH (22:30)
[2016-04-27] MEDS: *HR* Heparin 5,000 UNIT/ML VIAL SQ SCH ×2 (06:02→15:27)
--- NOTE | 2016-04-27 06:53 | Internal Med Progress Note ---
<Leticia Keller - Last Filed: 04/27/16 08:13> Date of Encounter: 04/27/16 Time of Encounter: 06:50 - Assessment and plan (1) Altered mental status Current Visit: Yes Status: Acute Assessment and plan: Patient being worked up for altered mental status. Patient is intermittently confused, pulling out her IV lines, and does not remember conversations that occurred earlier in the day. Furthermore, she does not have a linear thought process and displays tangential thinking. CT head showed no acute abnormality. Etiology unclear at this time, but likely exacerbated by patient's UTI Patient lives alone and baseline is uknown. According to [facility] notes, she was seen by her PCP back in December and had diagnosis of Dementia listed. Patient lives alone at home. There is significant concern regarding her safety. She states she has family members that live close by but this has not been confirmed. UDS negative, TSH normal. RPR negative. 04/25: patient is more confused today, but less agitated. she cannot remember the names of some of her family members. 04/26: patient continues to be more confused and drowsy. She does not recall her brother coming to visit her this morning. 04/27: pending discharge planning to ECF Plan: Consult to psychiatry- note states that her capacity/competency could not be determined, psychiatrist has added PRN halodol. Risperidol daily Ativan Q8 PRN for agitation consult to administrator social welfare to help in discharge planning. Patient's brother yvette is involved in this. Unlikely that patient's son will take guardianship , as he has not had contact with patient for several years. she will remain inpatient until discharge planning to ECF is finalized, as patient is a danger to herself. Qualifiers: Altered mental status type: unspecified Qualified Code(s): R41.82 - Altered mental status, unspecified (2) Dementia Current Visit: No Status: Chronic Assessment and plan: Plan as above. Qualifiers: Dementia type: Alzheimer's disease Alzheimer's disease onset: other onset Dementia behavioral disturbance: with behavioral disturbance Qualified Code( s): G30.8 - Other Alzheimer's disease; F02.81 - Dementia in other diseases classified elsewhere with behavioral disturbance (3) UTI (urinary tract infection) Current Visit: Yes Status: Acute Assessment and plan: Ceftriaxone course complete. resolved. patient reports no lower abdomen/flank tenderness. continue to monitor. Qualifiers: Urinary tract infection type: site unspecified Hematuria presence: without hematuria Qualified Code(s): N39.0 - Urinary tract infection, site not specified (4) Periorbital contusion of left eye Current Visit: Yes Status: Acute Assessment and plan: Improving. continue to monitor. Qualifiers: Encounter type: initial encounter Qualified Code(s): S05.12XA - Contusion of eyeball and orbital tissues, left eye, initial encounter (5) Essential hypertension Current Visit: No Status: Chronic Assessment and plan: BP well controlled today. Continue Amlodipine and Lisinopril. (6) DVT prophylaxis Current Visit: Yes Status: Acute Assessment and plan: Heparin SQ - Subjective Interval history: 75 year-old female evaluated at bedside. per nursing notes, last night she stated that if she could choose someone to make medical decisions, she would choose her sister saeed or her brother yvette. Patient is alert and oriented x1 , no acute distress, appears fatigued. Last night, patient also talked about her daughter who recently. patient had one dose of halodol overnight. - Constitutional Vitals: Temp Pulse Resp BP Pulse Ox 98.3 F 56 15 135/67 93 L 04/27/16 03:33 04/27/16 03:33 04/27/16 03:33 04/27/16 03:33 04/27/16 03:33 General appearance: Present: cooperative, A&O X 1, pleasant, no acute distress. Absent: answers questions appropriately - Head Head exam: Present: atraumatic, normocephalic - Neck Neck exam general surgery: Present: supple, trachea midline - Respiratory Respiratory exam: Present: CTAB - Cardiovascular Cardiovascular exam: Present: RRR, +S1, +S2 - GI/Abdominal GI/Abdominal exam: Present: normal bowel sounds, soft. Absent: distended, tenderness - Extremities Exam Extremities exam: Absent: cyanotic, pedal edema - Psychiatric Psychiatric exam: Present: depressed Internal Medicine: Result - Labs CBC & Chem 7: 04/25/16 06:34 04/25/16 06:34 Consult Discharge Plan - Plan Referrals: Barrett Webb MD [Primary Care Provider] - (web request sent on 04/25/16) <Jorge Alberto Jeter T - Last Filed: 04/27/16 12:27> - Constitutional Vitals: Temp Pulse Resp BP Pulse Ox 98.1 F 73 16 125/76 92 L 04/27/16 11:49 04/27/16 11:49 04/27/16 11:49 04/27/16 11:49 04/27/16 11:49 Internal Medicine: Result - Labs CBC & Chem 7: 04/27/16 09:08 04/27/16 09:08 Labs: Short CBC 04/27/16 Range/Units 09:08 WBC 4.7 (4.3-11.1) K/mcL Hgb 12.8 (11.5-15.4) g/dL Hct 40.2 (35.3-44.9) % Plt Count 135 L (140-400) K/mcL Neutrophils # 3.3 (1.6-8.9) K/mcL BMP 04/27/16 09:08 Sodium 138 Potassium 4.1 Chloride 105 Carbon Dioxide 23 BUN 24 H Creatinine 0.77 Glucose 178 H Calcium 8.6 - Attending Attestation I examined this patient and my medical decision-making was reviewed with the GAS SYSTEM OPERATOR/PA/Advanced Practice Nurse/Resident Physician. I agree with the documented findings, disposition and treatment plan as described except to the extent set forth below. 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 Secondary work up for dementia is negative She is seen at bedside, complains of dry eyes On physical exam, she is quite distracted, talking about her eyes and money ( which she had pieces of a torn dollar note on her bed). Chest is clear, abdomen is benign, extremities are well perfused Refused labs this morning Patient continues to be confused and poses significant risk to herself with her recurrent falls (evidenced bruising on admission), worsening confusion, verified by her brother with hospital staff. She is not a safe discharge home She needs to be placed in SNF -she lives alone, and is not in touch with her son.
[2016-04-27] MEDS: risperiDONE 0.25 MG TABLET PO SCH (07:32)
[2016-04-27] MEDS: amLODIPine 5 MG TABLET PO SCH (07:32)
[2016-04-27] MEDS: Lacri-Lube 3.5 GM TUBE BOTH EYES SCH ×2 (07:33→21:46)
[2016-04-27 10:10] LABS: Basophils % 0.6 %; Eosinophils # 0.2 K/mcL (0.0-0.6); Eosinophils % 3.9 %; Hematocrit 40.2 % (35.3-44.9); Hemoglobin 12.8 g/dL (11.5-15.4); Immature Granulocytes % 0.6 % (0-4); Lymphocytes # 0.8 K/mcL (0.6-4.6); Lymphocytes % 16.3 %; Mean Corpuscular HGB Conc 31.8 g/dL (31.6-35.5); Mean Corpuscular Hemoglobin 29.3 pg (28.0-33.3); Mean Platelet Volume 11.9 fL (9.4-12.4); Monocytes # 0.3 K/mcL (0.0-1.3); Monocytes % 7.3 %; Neutrophils # 3.3 K/mcL (1.6-8.9); Platelet Count 135 K/mcL (140-400); Red Blood Count 4.37 M/mcL (3.82-4.97); Red Cell Distribution Width 14.2 % (11.5-14.5); Segmented Neutrophils % 71.3 %
[2016-04-27 10:22] LABS: BUN/Creatinine Ratio 31 (6-26); Blood Urea Nitrogen 24 mg/dL (7-20); Calcium 8.6 mg/dL (8.6-10.8); Carbon Dioxide 23 mEq/L (19-29); Chloride 105 mEq/L (98-109); Glucose 178 mg/dL (70-99); Osmolality,Calculated 294 (280-300); Potassium 4.1 mEq/L (3.5-4.5); Sodium 138 mEq/L (136-145); eGFR For African Americans > 60 (> 60); eGFR For Non-African Americans > 60 (> 60)
[2016-04-28] MEDS: *HR* Heparin 5,000 UNIT/ML VIAL SQ SCH ×2 (05:46→16:57)
[2016-04-28] MEDS: amLODIPine 5 MG TABLET PO SCH (09:07)
[2016-04-28] MEDS: risperiDONE 0.25 MG TABLET PO SCH (09:07)
[2016-04-28] MEDS: Lacri-Lube 3.5 GM TUBE BOTH EYES SCH ×2 (09:08→22:13)
[2016-04-28] MEDS: *HR* LORazepam 2 MG/ML VIAL IVP PRN ×2 (13:36→22:13)
--- NOTE | 2016-04-28 17:11 | Internal Med Progress Note ---
Date of Encounter: 04/28/16 Time of Encounter: 10:30 - Assessment and plan (1) Acute metabolic encephalopathy Current Visit: Yes Status: Acute Assessment and plan: Appears to have resolved. There is however underlying dementia. Continue to await decision on disposition Sister/brother and son should be incorporated in decision making. I do think that if she lives with family, support by respite care from home health services, the patient may be able to go back home. (2) Advance directive discussed with patient Current Visit: Yes Status: Acute (3) Encounter for evaluation of ability to make decisions regarding care Current Visit: Yes Status: Acute (4) Dementia Current Visit: Yes Status: Chronic Assessment and plan: Plan as above. Qualifiers: Dementia type: Alzheimer's disease Alzheimer's disease onset: other onset Dementia behavioral disturbance: with behavioral disturbance Qualified Code( s): G30.8 - Other Alzheimer's disease; F02.81 - Dementia in other diseases classified elsewhere with behavioral disturbance (5) Essential hypertension Current Visit: Yes Status: Chronic Assessment and plan: BP well controlled today. Continue Amlodipine and Lisinopril. - Subjective Interval history: She had no complaints. She requested to go home. She tells me she is functional and able to take care of her self. She even leaves her bed stands up, and kneels down and stands up again without difficulty. She does not want to go to a NH. She thinks people are trying to take her house from her. She says her sister and son will take care of her. She is apparently logical in reason, difficult to fault her thought process. I see the psychiatrist was undecided on her competence. - Constitutional Vitals: Temp Pulse Resp BP Pulse Ox 98.4 F 62 17 144/73 94 L 04/28/16 08:14 04/28/16 08:14 04/28/16 08:14 04/28/16 11:09 04/28/16 08:14 General appearance: Present: cooperative, A&O X 2, pleasant, no acute distress, answers questions appropriately. Absent: severe distress - Head Head exam: Present: normal inspection - Eye Eye exam: Present: normal appearance Pupils: Present: PERRL - ENT ENT exam: Present: mucous membranes moist - Neck Neck exam general surgery: Present: normal inspection, supple, trachea midline. Absent: lymphadenopathy, thyromegaly - Respiratory Respiratory exam: Present: CTAB - Cardiovascular Cardiovascular exam: Present: RRR, +S1, +S2 - GI/Abdominal GI/Abdominal exam: Present: normal bowel sounds, soft. Absent: mass, tenderness - Rectal Rectal exam: Present: deferred - Additional comments: No flank tenderness, no CVA TENDERNESS, NO SUPRAPUBIC TENDERNESS. - Extremities Exam Extremities exam: Absent: calf tenderness, pedal edema - Neurological Exam Neurological exam: Present: alert, reflexes normal, no focal deficits. Absent: abnormal gait - Psychiatric Psychiatric exam: Present: normal affect, normal mood. Absent: agitated Internal Medicine: Result - Labs CBC & Chem 7: 04/27/16 09:08 04/27/16 09:08 Consult Discharge Plan - Plan Referrals: Barrett Webb MD [Primary Care Provider] - (web request sent on 04/25/16)
[2016-04-29] MEDS: *HR* Heparin 5,000 UNIT/ML VIAL SQ SCH ×2 (06:00→18:07)
[2016-04-29] MEDS: risperiDONE 0.25 MG TABLET PO SCH (08:46)
[2016-04-29] MEDS: Lacri-Lube 3.5 GM TUBE BOTH EYES SCH ×2 (08:47→20:27)
[2016-04-29] MEDS: amLODIPine 5 MG TABLET PO SCH (08:47)
--- NOTE | 2016-04-29 11:12 | Internal Med Progress Note ---
Date of Encounter: 04/29/16 Time of Encounter: 10:05 - Assessment and plan (1) Acute metabolic encephalopathy Current Visit: Yes Status: Resolved (2) Periorbital contusion of left eye Current Visit: Yes Status: Acute Assessment and plan: Improving. continue to monitor. Qualifiers: Encounter type: initial encounter Qualified Code(s): S05.12XA - Contusion of eyeball and orbital tissues, left eye, initial encounter (3) UTI (urinary tract infection) Current Visit: Yes Status: Acute Assessment and plan: Ceftriaxone course complete. resolved. patient reports no lower abdomen/flank tenderness. continue to monitor. Qualifiers: Urinary tract infection type: site unspecified Hematuria presence: without hematuria Qualified Code(s): N39.0 - Urinary tract infection, site not specified (4) Dementia Current Visit: Yes Status: Chronic Assessment and plan: Patient continues to be confused and poses significant risk to herself with her recurrent falls (evidenced bruising on admission), worsening confusion, verified by her brother with hospital staff. She is not a safe discharge home She needs to be placed in SNF -she lives alone, and is not in touch with her son Son/brother have agreed with this plan SW on board. Qualifiers: Dementia type: Alzheimer's disease Alzheimer's disease onset: other onset Dementia behavioral disturbance: with behavioral disturbance Qualified Code( s): G30.8 - Other Alzheimer's disease; F02.81 - Dementia in other diseases classified elsewhere with behavioral disturbance (5) Essential hypertension Current Visit: Yes Status: Chronic Assessment and plan: BP well controlled today. Continue Amlodipine and Lisinopril. - Subjective Interval history: Seen at bedside, has no new complains She called me "her friend and thought I was to her PCP. She does not recognize this provider as her caregiver - Constitutional Vitals: Temp Pulse Resp BP Pulse Ox 97.7 F 51 16 129/76 96 04/29/16 07:15 04/29/16 07:15 04/29/16 07:15 04/29/16 07:15 04/29/16 07:15 General appearance: Present: cooperative, A&O X 2, pleasant, no acute distress. Absent: severe distress, answers questions appropriately - Head Head exam: Present: atraumatic, normocephalic - Eye Eye exam: Present: PERRL, conjuntiva pink, sclera anicteric Pupils: Present: PERRL - Neck Neck exam general surgery: Present: supple, trachea midline. Absent: lymphadenopathy - Respiratory Respiratory exam: Present: CTAB. Absent: accessory muscle use, rales, rhonchi, wheezes - Cardiovascular Cardiovascular exam: Present: RRR, +S1, +S2. Absent: diastolic murmur, gallop, rubs, systolic murmur - GI/Abdominal GI/Abdominal exam: Present: normal bowel sounds, soft, no peritoneal signs. Absent: distended, tenderness - Extremities Exam Extremities exam: Present: warm, radial pulses palpable and symetrical. Absent : calf tenderness, cyanotic, pedal edema - Neurological Exam Neurological exam: Present: CN II-XII intact, oriented X3, no focal deficits. Absent: pronater drift, facial droop, speech deficit - Skin Skin exam: Present: dry, intact Internal Medicine: Result - Labs CBC & Chem 7: 04/27/16 09:08 04/27/16 09:08 Consult Discharge Plan - Plan Referrals: Barrett Webb MD [Primary Care Provider] - (web request sent on 04/25/16)
[2016-04-29] MEDS: *HR* LORazepam 2 MG/ML VIAL IVP PRN (22:29)
[2016-04-30] MEDS: *HR* Heparin 5,000 UNIT/ML VIAL SQ SCH ×2 (05:13→16:45)
[2016-04-30 06:14] LABS: BUN/Creatinine Ratio 38 (6-26); Blood Urea Nitrogen 33 mg/dL (7-20); Calcium 8.6 mg/dL (8.6-10.8); Carbon Dioxide 24 mEq/L (19-29); Chloride 108 mEq/L (98-109); Glucose 99 mg/dL (70-99); Osmolality,Calculated 297 (280-300); Potassium 4.1 mEq/L (3.5-4.5); Sodium 140 mEq/L (136-145); eGFR For African Americans > 60 (> 60); eGFR For Non-African Americans > 60 (> 60)
[2016-04-30] MEDS: risperiDONE 0.25 MG TABLET PO SCH (09:50)
[2016-04-30] MEDS: amLODIPine 5 MG TABLET PO SCH (09:52)
--- NOTE | 2016-04-30 09:56 | Internal Med Progress Note ---
Date of Encounter: 04/30/16 Time of Encounter: 09:56 - Assessment and plan (1) Acute metabolic encephalopathy Current Visit: Yes Status: Resolved (2) Periorbital contusion of left eye Current Visit: Yes Status: Acute Assessment and plan: Improving. continue to monitor. Qualifiers: Encounter type: initial encounter Qualified Code(s): S05.12XA - Contusion of eyeball and orbital tissues, left eye, initial encounter (3) UTI (urinary tract infection) Current Visit: Yes Status: Acute Assessment and plan: Ceftriaxone course complete. resolved. patient reports no lower abdomen/flank tenderness. continue to monitor. Qualifiers: Urinary tract infection type: site unspecified Hematuria presence: without hematuria Qualified Code(s): N39.0 - Urinary tract infection, site not specified (4) Dementia Current Visit: Yes Status: Chronic Assessment and plan: Patient continues to be confused and poses significant risk to herself with her recurrent falls (evidenced bruising on admission), worsening confusion, verified by her brother with hospital staff. She is not a safe discharge home She needs to be placed in SNF -she lives alone, and is not in touch with her son Son/brother have agreed with this plan SW on board. Qualifiers: Dementia type: Alzheimer's disease Alzheimer's disease onset: other onset Dementia behavioral disturbance: with behavioral disturbance Qualified Code( s): G30.8 - Other Alzheimer's disease; F02.81 - Dementia in other diseases classified elsewhere with behavioral disturbance (5) Essential hypertension Current Visit: Yes Status: Chronic Assessment and plan: BP well controlled today. Chemistry within normal limits Continue Amlodipine and Lisinopril. - Subjective Interval history: Seen at bedside, has no new complains Patient has no new complaints. Abdomen lead is disharmony between family members on the beat patient's emergency guardian. Patient's son or brother does not plan to take her home to live with them. Patient is alone cargo station worker is on board. - Constitutional Vitals: Temp Pulse Resp BP Pulse Ox 97.6 F 79 16 169/87 95 04/30/16 07:21 04/30/16 07:21 04/30/16 07:21 04/30/16 07:21 04/30/16 07:21 General appearance: Present: cooperative, A&O X 2, pleasant, no acute distress. Absent: severe distress, answers questions appropriately - Head Head exam: Present: atraumatic, normocephalic - Eye Eye exam: Present: PERRL, conjuntiva pink, sclera anicteric Pupils: Present: PERRL - Neck Neck exam general surgery: Present: supple, trachea midline. Absent: lymphadenopathy - Respiratory Respiratory exam: Present: CTAB. Absent: accessory muscle use, rales, rhonchi, wheezes - Cardiovascular Cardiovascular exam: Present: RRR, +S1, +S2. Absent: diastolic murmur, gallop, rubs, systolic murmur - GI/Abdominal GI/Abdominal exam: Present: normal bowel sounds, soft, no peritoneal signs. Absent: distended, tenderness - Extremities Exam Extremities exam: Present: warm, radial pulses palpable and symetrical. Absent : calf tenderness, cyanotic, pedal edema - Neurological Exam Neurological exam: Present: CN II-XII intact, oriented X3, no focal deficits. Absent: pronater drift, facial droop, speech deficit - Skin Skin exam: Present: dry, intact Internal Medicine: Result - Labs CBC & Chem 7: 04/27/16 09:08 04/30/16 05:36 Labs: BMP 04/30/16 05:36 Sodium 140 Potassium 4.1 Chloride 108 Carbon Dioxide 24 BUN 33 H Creatinine 0.87 Glucose 99 Calcium 8.6 Consult Discharge Plan - Plan Referrals: Barrett Webb MD [Primary Care Provider] - (web request sent on 04/25/16)
[2016-04-30] MEDS: Lacri-Lube 3.5 GM TUBE BOTH EYES SCH ×2 (10:30→21:40)
[2016-05-01] MEDS: *HR* Heparin 5,000 UNIT/ML VIAL SQ SCH ×2 (05:47→17:44)
[2016-05-01] MEDS: amLODIPine 5 MG TABLET PO SCH (08:24)
[2016-05-01] MEDS: risperiDONE 0.25 MG TABLET PO SCH (08:24)
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
[2016-05-01] MEDS: Lacri-Lube 3.5 GM TUBE BOTH EYES SCH (09:47)
[2016-05-01] MEDS ORDERED: *HR* LORazepam 1 MG TABLET PO ONE (13:51)
[2016-05-02] MEDS: Lacri-Lube 3.5 GM TUBE BOTH EYES SCH ×2 (03:10→08:19)
[2016-05-02] MEDS: *HR* Heparin 5,000 UNIT/ML VIAL SQ SCH ×2 (06:48→17:25)
[2016-05-02] MEDS: amLODIPine 5 MG TABLET PO SCH (08:19)
[2016-05-02] MEDS: risperiDONE 0.25 MG TABLET PO SCH (08:19)
--- NOTE | 2016-05-02 08:47 | Internal Med Progress Note ---
Date of Encounter: 05/02/16 Time of Encounter: 08:25 - Assessment and plan (1) Acute metabolic encephalopathy Current Visit: Yes Status: Resolved Assessment and plan: Resolved, superimposed on moderate dementia secondary to UTI . (2) Periorbital contusion of left eye Current Visit: Yes Status: Acute Assessment and plan: Improving. continue to monitor. Qualifiers: Encounter type: initial encounter Qualified Code(s): S05.12XA - Contusion of eyeball and orbital tissues, left eye, initial encounter (3) UTI (urinary tract infection) Current Visit: Yes Status: Acute Assessment and plan: Ceftriaxone course complete. resolved. patient reports no lower abdomen/flank tenderness. continue to monitor. Qualifiers: Urinary tract infection type: site unspecified Hematuria presence: without hematuria Qualified Code(s): N39.0 - Urinary tract infection, site not specified (4) Dementia Current Visit: Yes Status: Chronic Assessment and plan: Patient continues to be confused occasionally and poses significant risk to herself with her recurrent falls (evidenced bruising on admission), worsening confusion, verified by her brother with hospital staff. She is not a safe discharge home She has no decisional capacity She needs to be placed in SNF -she lives alone, and is not in good terms with her son, she doesnt want to live with him Son/brother have agreed with this plan SW on board. Qualifiers: Dementia type: Alzheimer's disease Alzheimer's disease onset: other onset Dementia behavioral disturbance: with behavioral disturbance Qualified Code( s): G30.8 - Other Alzheimer's disease; F02.81 - Dementia in other diseases classified elsewhere with behavioral disturbance (5) Essential hypertension Current Visit: Yes Status: Chronic Assessment and plan: BP well controlled today. Chemistry within normal limits Continue Amlodipine and Lisinopril. (6) Discharge planning issues Current Visit: Yes Status: Acute Assessment and plan: SW on board, for placement - Subjective Interval history: Seen at bedside, has no new complains Confused, but pleasant and having breakfast Per SW note, APS states patient is known to her as she has had reports of patient being found wondering in the community but no one appears to have been able to contact patient's son in the past. She is awaiting placement - Constitutional Vitals: Temp Pulse Resp BP Pulse Ox 98.0 F 75 16 137/83 95 05/02/16 08:21 05/02/16 08:21 05/02/16 08:21 05/02/16 08:21 05/02/16 08:21 General appearance: Present: A&O X 2, pleasant, no acute distress, answers questions appropriately - Head Head exam: Present: atraumatic, normocephalic - Eye Eye exam: Present: PERRL, conjuntiva pink, sclera anicteric Pupils: Present: PERRL - Neck Neck exam general surgery: Present: supple, trachea midline. Absent: lymphadenopathy - Respiratory Respiratory exam: Present: CTAB. Absent: accessory muscle use, rales, rhonchi, wheezes - Cardiovascular Cardiovascular exam: Present: RRR, +S1, +S2. Absent: diastolic murmur, gallop, rubs, systolic murmur - GI/Abdominal GI/Abdominal exam: Present: normal bowel sounds, soft, no peritoneal signs. Absent: distended, tenderness - Extremities Exam Extremities exam: Present: warm, radial pulses palpable and symetrical. Absent : calf tenderness, cyanotic, pedal edema - Neurological Exam Neurological exam: Present: alert, CN II-XII intact, normal gait, oriented X3, no focal deficits. Absent: pronater drift, facial droop, speech deficit - Skin Skin exam: Present: dry, intact Internal Medicine: Result - Labs CBC & Chem 7: 04/27/16 09:08 04/30/16 05:36 Consult Discharge Plan - Plan Referrals: Barrett Webb MD [Primary Care Provider] - (web request sent on 04/25/16)
[2016-05-02] MEDS: Artificial Tears SOLN 15 ML BOTTLE BOTH EYES SCH ×2 (15:44→21:28)
[2016-05-03] MEDS: *HR* Heparin 5,000 UNIT/ML VIAL SQ SCH ×2 (06:12→17:47)
[2016-05-03] MEDS: amLODIPine 5 MG TABLET PO SCH (08:28)
[2016-05-03] MEDS: risperiDONE 0.25 MG TABLET PO SCH (08:28)
[2016-05-03] MEDS: Artificial Tears SOLN 15 ML BOTTLE BOTH EYES SCH ×4 (08:29→21:18)
--- NOTE | 2016-05-03 10:16 | Internal Med Progress Note ---
Date of Encounter: 05/03/16 Time of Encounter: 09:20 - Assessment and plan (1) Acute metabolic encephalopathy Current Visit: Yes Status: Resolved Assessment and plan: Resolved, superimposed on moderate dementia secondary to UTI . (2) Periorbital contusion of left eye Current Visit: Yes Status: Resolved Assessment and plan: Resolved Qualifiers: Encounter type: initial encounter Qualified Code(s): S05.12XA - Contusion of eyeball and orbital tissues, left eye, initial encounter (3) UTI (urinary tract infection) Current Visit: Yes Status: Resolved Assessment and plan: Ceftriaxone course complete. resolved. patient reports no lower abdomen/flank tenderness. continue to monitor. Qualifiers: Urinary tract infection type: site unspecified Hematuria presence: without hematuria Qualified Code(s): N39.0 - Urinary tract infection, site not specified (4) Dementia Current Visit: Yes Status: Chronic Assessment and plan: Patient continues to be confused occasionally and poses significant risk to herself with her recurrent falls (evidenced bruising on admission), worsening confusion, verified by her brother with hospital staff. She is not a safe discharge home She has no decisional capacity She needs to be placed in SNF -she lives alone, and is not in good terms with her son, she doesn't want to live with him There seems to be many legal issues ongoing, patient's son and brother are no longer agreeing to same discharge dispo SW on board, follow recs Qualifiers: Dementia type: Alzheimer's disease Alzheimer's disease onset: other onset Dementia behavioral disturbance: with behavioral disturbance Qualified Code( s): G30.8 - Other Alzheimer's disease; F02.81 - Dementia in other diseases classified elsewhere with behavioral disturbance (5) Essential hypertension Current Visit: Yes Status: Chronic Assessment and plan: BP well controlled today. Continue Amlodipine and Lisinopril. (6) Discharge planning issues Current Visit: Yes Status: Acute Assessment and plan: SW on board, for placement - Subjective Interval history: Seen at bedside, has no new complains Confused, but pleasant and having breakfast She is awaiting placement SW notes reviewed - Constitutional Vitals: Temp Pulse Resp BP Pulse Ox 97.7 F 63 13 137/73 93 L 05/03/16 08:02 05/03/16 08:02 05/03/16 08:02 05/03/16 08:02 05/03/16 08:02 General appearance: Present: A&O X 2, pleasant, no acute distress, answers questions appropriately - Head Head exam: Present: atraumatic, normocephalic - Eye Eye exam: Present: PERRL, conjuntiva pink, sclera anicteric Pupils: Present: PERRL - Neck Neck exam general surgery: Present: supple, trachea midline. Absent: lymphadenopathy - Respiratory Respiratory exam: Present: CTAB. Absent: accessory muscle use, rales, rhonchi, wheezes - Cardiovascular Cardiovascular exam: Present: RRR, +S1, +S2. Absent: diastolic murmur, gallop, rubs, systolic murmur - GI/Abdominal GI/Abdominal exam: Present: normal bowel sounds, soft, no peritoneal signs. Absent: distended, tenderness - Extremities Exam Extremities exam: Present: warm, radial pulses palpable and symetrical. Absent : calf tenderness, cyanotic, pedal edema - Neurological Exam Neurological exam: Present: CN II-XII intact, oriented X3, no focal deficits. Absent: pronater drift, facial droop, speech deficit - Skin Skin exam: Present: dry, intact Internal Medicine: Result - Labs CBC & Chem 7: 04/27/16 09:08 04/30/16 05:36 Consult Discharge Plan - Plan Referrals: Barrett Webb MD [Primary Care Provider] - (web request sent on 04/25/16)
[2016-05-04] MEDS: Artificial Tears SOLN 15 ML BOTTLE BOTH EYES SCH ×4 (07:45→17:36)
[2016-05-04] MEDS: *HR* Heparin 5,000 UNIT/ML VIAL SQ SCH ×2 (07:46→17:36)
[2016-05-04] MEDS: risperiDONE 0.25 MG TABLET PO SCH (09:53)
[2016-05-04] MEDS: amLODIPine 5 MG TABLET PO SCH (09:54)
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
[2016-05-04 15:02] VITALS: BP 158/70
--- NOTE | 2016-05-04 16:50 | Physician Discharge Referral ---
ExtendedCare Referral Info Transfer To: [facility] Provider in Charge: Corona Valdovinos Provider in Charge after Transfer: PCP Institutional Level of Care: Intermediate - MR - Diagnosis (1) Acute metabolic encephalopathy Priority: Primary Status: Resolved (2) Periorbital contusion of left eye Priority: Primary Status: Resolved (3) UTI (urinary tract infection) Priority: Primary Status: Resolved (4) Dementia Priority: Secondary Status: Chronic (5) Essential hypertension Priority: Secondary Status: Chronic (6) Discharge planning issues Priority: Secondary Status: Acute Prognosis: Fair Aware of Diagnosis: Patient, Family Aware of Prognosis: Patient, Family - Transfer Medications Prescriptions: Amlodipine Besylate 10 mg PO DAILY #30 tablet Lisinopril [Zestril] 20 mg PO DAILY #30 tablet RisperiDONE [RisperDAL] 1 mg PO DAILY #30 tablet Home Medications: Amlodipine Besylate 10 mg PO DAILY #30 tablet 05/04/16 [Rx] Amlodipine [Norvasc] 10 mg PO DAILY #0 tablet 05/04/16 [Rx] Artificial Tears SOLN [Akwa Tears] 1 drop BOTH EYES QID bottle 05/04/16 [Rx] Lisinopril [Zestril] 20 mg PO DAILY #0 tablet 05/04/16 [Rx] Lisinopril [Zestril] 20 mg PO DAILY #30 tablet 05/04/16 [Rx] Omeprazole [PriLOSEC] 20 mg PO DAILY@0630 capsule. 05/04/16 [Rx] RisperiDONE [RisperDAL] 1 mg PO DAILY tablet 05/04/16 [Rx] RisperiDONE [RisperDAL] 1 mg PO DAILY #30 tablet 05/04/16 [Rx] Allergies/Adverse Reactions: Allergies No Known Allergies Allergy (Verified 04/21/16 15:11) - Respiratory Orders Smoking Cessation: Smoking cessation has been advised. For more information, call the [place] Tobacco Quit Line at 3-699-BZHL-NOW. - Mobility Orders Ambulate - Diet Orders Cardiac CERTIFICATION: I certify that the transfer of the above named patient to an Extended Care Facility is necessary for the continuing treatment of the diagnosis listed. The above information is true and accurate reflection of patient's current condition. Confidential - Redisclosure prohibited without a patient's written consent.
== END 2016-05-04 18:18 | DRG 689 ==
LOC: 3BNU 13:30 → EMEROO 13:30 → SUATTDRO 15:16 → 3BNU 15:32 → 2ANU 04-24 21:41
PROVIDERS: ADMIT Nurse Practitioner Family; ATTEND Internal Medicine